=== PATIENT | male | born 1935 | race Caucasian/White ===

== ENCOUNTER → 2017-05-01 | Outpatient (CLI) | payer OTHER ==
[~2017-05-01] MED LIST: ACETAMINOPHEN PO; ACETAMINOPHEN650 M1 PO; ALDACTONE25 MG PO; AMARYL PO; AMIODARONE; AMIODARONE PO; ANTI-DIARRHEAL2 M1 PO; ASPIRIN PO; ASPIRIN81 M2 PO; BENAZEPRIL PO; CIPRO250 MG PO; CORDARONE200 M1 PO; DIGITEK125 MC1 PO; ECOTRIN81 M1 PO; FISH OIL 1,0001 CAP PO; FISH OIL300 MG PO; FLOMAX0.4 M1 PO; FOLIC ACID; FUROSEMIDE40 MG PO; KCL PO; KLOR-CON SPRIN10 MEQ PO; LANTUS100 U/ML; LANTUS100 U/ML SUBQ; LASIX; LASIX PO; LASIX80 MG PO; LATANOPROST2.5 ML OU; LONITEN10 M1 PO; LOTENSIN20 MG PO; LUMIGAN2.5 ML OP; METOLAZONE5 MG PO; METOPROLOL SUC100 MG PO; METOPROLOL TAR100 MG PO; MINOXIDIL; MINOXIDIL PO; MINOXIDIL2.5 MG PO; MULTI VITAMIN1 EACH PO; MULTI-VITAMIN1 EAC1 PO; MULTI-VITAMIN1 TAB PO; NEXIUM PO; NORVASC PO; OMEPRAZOLE40 M1 PO; POTASSIUM CHLO10 ME1 PO; SILDENAFIL20 MG PO; TOPROL XL PO; TOPROL XL200 MG PO; TRAVATAN Z5 ML OU; TRICOR; TYLENOL #3 PO; TYLENOL EXTRA500 M1 PO; VIAGRA PO; VICODIN 5/500 T1 TAB PO; VITAMINS; XARELTO10 MG PO
--- NOTE | ~2017-05-01 | EKG ---
PATIENT: LOTTIE ALANIZ UNIT #: [id number] Ventricular Rate: 60 BPM Atrial Rate: 78 BPM QRS Duration: 98 ms Q-T Interval: 396 ms QTC Calculation(Bezet): 396 ms Calculated R Badger: -18 degrees Calculated T Badger: -91 degrees Diagnosis Line: Atrial fibrillation with premature ventricular or Diagnosis Line: aberrantly conducted complexes Diagnosis Line: Nonspecific T wave abnormality , probably Diagnosis Line: digitalis effect Diagnosis Line: Abnormal ECG Diagnosis Line: When compared with ECG of 29-JUN-2014 15:55, Diagnosis Line: Atrial fibrillation has replaced Sinus rhythm Diagnosis Line: Left bundle branch block is no longer Present Diagnosis Line: Confirmed by MINERVA OGDEN MD ([id number]) on 05/01/2017 Diagnosis Line: 6:54:21 PM INTERPRETING MD: ALIN CHESTER
[2017-05-01 10:33] LABS: HEMATOCRIT 42.2 % (38.0-50.0); HEMOGLOBIN 13.9 gm/dL (13.0-16.0); MEAN CORPUSCULAR HEMOGLOBIN 30.6 PG (28-34); MEAN CORPUSCULAR HGB CONC 32.9 g/dL (30-36); MEAN PLATELET VOLUME 8.8 FL (6.5-11.5); RED BLOOD COUNT 4.54 X10e (3.90-5.60); RED CELL DISTRIBUTION WIDTH 14.5 % (11.0-15.5); WHITE BLOOD COUNT 4.8 X10e3 (4.0-10.5)
[2017-05-01 11:28] LABS: BUN/CREATININE RATIO 28.33; CALCIUM SERUM 8.4 mg/dL (8.4-10.2); CREATININE SERUM 1.8 mg/dL (0.6-1.4); GLOM FILT RATE Estimated 34.3 mL/min (>60); POTASSIUM 3.9 mmol/L (3.5-5.1)
== END | disposition home or self-care (01) ==
LOC: CAMB 09:56 → EDSTATUS 10:00 → CAMB 10:00
PROVIDERS: Specialist
DX: Z01.818 Encounter for other preprocedural examination (principal); K40.90 Unilateral inguinal hernia, without obstruction or gangrene, not specified as recurrent
CPT/HCPCS: 36415; 80048; 85027; 93005

== ENCOUNTER → 2017-05-08 | Day surgery (SDC) | payer MEDICARE ==
--- NOTE | ~2017-05-08 | OR ---
Unit #: [id number] #: [id number] Patient: LOTTIE ALANIZ [id number] [facility] [address] [place], [place] [address] [id number] MR#: [id number] NAME: LOTTIE ALANIZ ROOM: Date of Procedure: 05/08/2017 Admission Date: 05/08/2017 Surgeon: Oscar Drake M.D. : 1935 Attending Physician: Oscar Drake M.D. Referring Physician: Oscar Drake M.D. Primary Care Physician: Emiliano Rodriguez M.D. OPERATIVE REPORT PREOPERATIVE DIAGNOSIS Large right inguinal hernia. POSTOPERATIVE DIAGNOSIS Sliding indirect right inguinal hernia. PROCEDURE PERFORMED Open repair with PerFix plug mesh. ANESTHESIA General endotracheal anesthesia. ESTIMATED BLOOD LOSS Less than 20 mL. INDICATIONS FOR PROCEDURE Mr. Alaniz is an 82-year-old gentleman, who has had a longstanding right inguinal hernia that he has just lived with, but now it is enlarged to the point where it is causing him persistent discomfort. It is reducible, but painful. There is no incarceration or strangulation. DESCRIPTION OF PROCEDURE The patient was admitted to [facility], positively identified, and transported to the operating room, and after induction of general endotracheal anesthesia, his abdominal wall hair was clipped, and he was prepped and draped in usual sterile fashion. He received IV antibiotics per SCIP protocol. A transverse incision over the inguinal canal was made. We dissected down through the soft tissue exposing the external oblique aponeurosis. Aponeurosis opened in direction of its fibers to include the external ring. He had a very large hernia sac extending from the internal ring down to below the pubic tubercle. The shelving edge of the inguinal ligament was identified. The rectus sheath was identified medially and the ilioinguinal nerve was identified and preserved. The cord structures were elevated from the floor of the inguinal canal and the hernia sac was identified and from the cord structures, which were preserved and retracted with a Terrell drain. It was a very large hernia sac coming from the internal ring. I opened the sac and he had a loop of small bowel that was a sliding portion of the hernia. The small bowel was completely freed up and mobilized. There were no injuries to the bowel that was reduced back in the peritoneal cavity. I then grasped the edges of the hernia sac with clamps and excised the excess hernia sac, and I closed the hernia sac with 2-0 Vicryl Unit #: [id number] #: [id number] Patient: LOTTIE ALANIZ running suture. The sac was well closed enclosing the peritoneal cavity. He had a very large patulous internal ring, so a large PerFix plug was placed and secured in position with multiple 0 Ethibond interrupted sutures. The floor of the inguinal canal was then reinforced, doing a Bassini-type repair from the shelving edge inguinal ligament to the conjoined tendon. The onlay mesh was secured to the pubic tubercle, stretched across the inguinal canal. The tails of the keyhole mesh were wrapped around the cord structures exited the internal ring and secured to the musculofascial tissues superior and lateral to the internal ring. The limbs were secured to the rectus sheath medially and the shelving edge inguinal ligament laterally. The cord was placed back in the anatomic position. There was good hemostasis. The soft tissue was closed with 2-0 Vicryl running suture. 0.5% Marcaine with epinephrine was infiltrated in the fascia and soft tissue. Then, the skin was reapproximated using 4-0 Monocryl running subcuticular closure and Dermabond skin adhesive. Sponges and needle counts were correct x3. The patient tolerated the procedure well and transported to recovery in stable condition. Findings and postoperative instructions were discussed with his family. Dictated by... Zac Rai/mike TD: 05/09/2017 01:37 JOB #: [id number] OPERATIVE REPORT Page 1 of 1 X Oscar Drake MD PROCEDURE OPERATIVE NOTE
== END | disposition home or self-care (01) ==
LOC: CSUR 05:36
DX: K40.90 Unilateral inguinal hernia, without obstruction or gangrene, not specified as recurrent (principal); I25.10 Atherosclerotic heart disease of native coronary artery without angina pectoris; I25.2 Old myocardial infarction; I13.0 Hypertensive heart and chronic kidney disease with heart failure and stage 1 through stage 4 chronic kidney disease, or unspecified chronic kidney disease; I50.30 Unspecified diastolic (congestive) heart failure; E11.22 Type 2 diabetes mellitus with diabetic chronic kidney disease; N18.9 Chronic kidney disease, unspecified; I48.91 Unspecified atrial fibrillation; I48.92 Unspecified atrial flutter; N40.0 Benign prostatic hyperplasia without lower urinary tract symptoms; M19.90 Unspecified osteoarthritis, unspecified site; I27.2 Other secondary pulmonary hypertension; K21.9 Gastro-esophageal reflux disease without esophagitis; Z87.19 Personal history of other diseases of the digestive system; Z85.820 Personal history of malignant melanoma of skin; Z88.8 Allergy status to other drugs, medicaments and biological substances; Z88.6 Allergy status to analgesic agent; Z91.048 Other nonmedicinal substance allergy status; Z79.4 Long term (current) use of insulin; Z79.01 Long term (current) use of anticoagulants; Z79.891 Long term (current) use of opiate analgesic; Z79.899 Other long term (current) drug therapy; Z90.49 Acquired absence of other specified parts of digestive tract; Z98.41 Cataract extraction status, right eye; Z98.42 Cataract extraction status, left eye; Z95.1 Presence of aortocoronary bypass graft; Z98.890 Other specified postprocedural states
CPT/HCPCS: 82947; C1781; J0690; J1642; J1650; J2405; J3010